=== PATIENT | female | born 1935 | race Caucasian/White ===

== ENCOUNTER → 2016-11-08 | Outpatient (CLI) | payer OTHER ==
[~2016-11-08] VITALS: Ht 165.1 cm; Wt 117.5 kg
[~2016-11-08] MED LIST: AMBIEN 5 MG TABL5 M1 PO; CELEBREX400 MG PO; DESYREL; DESYREL50 MG PO; DETROL LA4 MG PO; DETROL PO; DOLOPHINE HCL5 MG PO; KEFLEX500 MG PO; KLOR-CON 1010 MEQ PO; LEXAPRO 10 MG T10 M1 PO; LEXAPRO 10 MG T10 MG PO; LIDODERM 5%1 PATCH TOP; LUNESTA2 MG PO; LUNESTA3 MG PO; LYRICA 50 MG50 MG PO; METHADONE HCL 110 M1 PO; METHADONE HCL5 MG PO; NUCYNTA50 MG PO; OXYCODONE HCL5 M1 PO; OXYCODONE-ACET1 EAC2 PO; OXYCODONE-ACET1 EACH PO; OXYCONTIN30 MG PO; OXYCONTIN40 MG PO; PREMARIN0.625 MG PO; PROBIOTIC1 EACH PO; ROZEREM; ROZEREM 8 MG TAB8 M1 PO; SIMVASTATIN80 MG PO; SYNTHROID100 MCG PO; TRAZODONE HCL50 MG PO; TRIAMCINOLONE 080 G3 TOP; VITAMIN D400 UNI1 PO
--- NOTE | ~2016-11-08 | HPC ---
[facility] [place] [place] [address] PAIN MANAGEMENT CONSULTATION Name: MITCH SPAIN Room #: REG CHITRA Grace.#: [id number] Admission: 11/08/16 Attend Phys: Wyatt Ramírez MD Discharge: Date of : 35 Report #: [id number] THIS REPORT FOR: //name// CC: Zhanna Markham MD DATE OF SERVICE: 11/08/2016 Followup visit for chronic foot and ankle pain, low back pain and hip pain. The patient returns to pain clinic today and the first thing she reports that she is being sued by her stepson. Her a year ago. Apparently, there are some concerns about the estate. She seems quite stressed today. She scores her pain is a 7/10, sharp and aching. Pain is mostly in her feet and ankles with weightbearing, it is much relieved by medication which is complex and has been titrated over the years. She tolerates her medication well. Denies any significant side effects. She does have a bowel movement about every other day and she uses MiraLax to help with that. She denies any cognitive effects from her medication. She safeguards all her medications. She lives alone. No one is in her house. MEDICATIONS: 1. Methadone 10 mg 4 times daily for a total of 40. 2. Oxycodone 5/325 one tablet twice a day for breakthrough pain. 3. Desyrel and trazodone for depression and anxiety taken at bedtime. 4. Lunesta use p.r.n. for inability to sleep. 5. Detrol LA. 6. Potassium. 7. Celebrex. 8. Vitamin D. PHYSICAL EXAMINATION: GENERAL: She was awake, alert and oriented. No signs of overmedication, sedation, depression or anxiety. She is angry about the last visit. VITAL SIGNS: Her blood pressure 156/70, heart rate is 50. She is 5 foot 5 and 259 pounds with a BMI of 43. She is able to move independently from a sitting to standing position, walks with antalgic features. She has a fall risk. She has significant pain and tenderness around the feet bilaterally where she has the ankle fusion. [address] [address] PAIN MANAGEMENT CONSULTATION Name: MITCH SPAIN Room #: REG [facility] Spencer.#: [id number] Admission: 11/08/16 Attend Phys: Wyatt Ramírez MD Discharge: Date of : 35 Report #: [id number] IMPRESSION: 1. Chronic intractable osteoarthritis involving ankles, bilateral feet, knees, and hips. 2. Chronic back pain. 3. Depression and anxiety. 4. Management of high risk medication. RECOMMENDATIONS: Under terms of our opioid agreement, I have reviewed her medication with important discussion about side effects safeguarding. We will try and continue to taper her medication as able. I did try to do that early in the year, but she complains bitterly of increase in some pain. She seems to do better at the current dose. Followup visit planned in 3 months. <ELECTRONICALLY SIGNED> By: Wyatt Ramírez MD 12/08/16 1130 [id number] Wyatt Ramírez MD /nt
[2016-11-08 12:34] VITALS: BP 156/70
== END | disposition home or self-care (01) ==
LOC: PAIN 07:18
DX: M15.9 Polyosteoarthritis, unspecified (principal); M54.5 Low back pain; G89.29 Other chronic pain; F32.9 Major depressive disorder, single episode, unspecified; F41.9 Anxiety disorder, unspecified; M25.559 Pain in unspecified hip

== ENCOUNTER → 2017-02-07 | Outpatient (CLI) | payer OTHER | LOC: HYPER 07:03 | DX: S91.105A Unspecified open wound of left lesser toe(s) without damage to nail, initial encounter (principal); I83.893 Varicose veins of bilateral lower extremities with other complications; L97.811 Non-pressure chronic ulcer of other part of right lower leg limited to breakdown of skin; L97.821 Non-pressure chronic ulcer of other part of left lower leg limited to breakdown of skin; R60.0 Localized edema; I10 Essential (primary) hypertension; I89.0 Lymphedema, not elsewhere classified; L03.032 Cellulitis of left toe; E66.09 Other obesity due to excess calories; M19.90 Unspecified osteoarthritis, unspecified site; F41.9 Anxiety disorder, unspecified; F32.9 Major depressive disorder, single episode, unspecified; K21.9 Gastro-esophageal reflux disease without esophagitis; E78.5 Hyperlipidemia, unspecified; E03.9 Hypothyroidism, unspecified; W22.8XXA Striking against or struck by other objects, initial encounter; Y93.89 Activity, other specified; Y92.89 Other specified places as the place of occurrence of the external cause; Y99.8 Other external cause status ==

== ENCOUNTER → 2017-02-11 | Outpatient (CLI) | payer OTHER ==
[~2017-02-11] VITALS: Ht 165.1 cm; Wt 117.2 kg
--- NOTE | ~2017-02-11 | HPC ---
[facility] [address] [place] [address] PAIN MANAGEMENT CONSULTATION Name: MITCH SPAIN Room #: REG CHITRA Spencer.#: [id number] Admission: 02/11/17 Attend Phys: Wyatt Ramírez MD Discharge: Date of : 35 Report #: [id number] THIS REPORT FOR: //name// CC: Woody Ramírez DATE OF SERVICE: 02/11/2017 Followup visit for low back pain with radiation into both legs and management of high risk medication. The patient returns to pain clinic today and is having increasing back, leg and foot pain. She also injured her foot striking it on a table. Her biggest complaint is radicular pain that shoots from her back and she complains of pain that involves the calves and feet. She has chronic neuropathy. Current medication dose is quite high. She is very tolerant has few side effects, but I do not think increasing in her opioid is a good idea at this point. I reviewed centrally acting medications provided through our clinic. She is on methadone 20 mg morning and 10 at noon and night, oxycodone 5/325 to supplement for breakthrough pain twice a day as allowed. She also uses Lunesta to help sleep at night and has been on trazodone in the past for depression, anxiety and for sleep. Even with all these central medications, she does not appear to be overly sedating or anxious. She does not appear depressed today. She is pleasant and communicative. We did not talk about social issues which have been so predominant at previous visits. On her current medicines, she is careful about safeguarding them and follows all aspects of our opioid agreement, which is closely mirroring the CDC guidelines. PHYSICAL EXAMINATION: She is morbidly obese, pleasant female. Blood pressure 110/69, heart rate 60, BMI is 43. She is able to move from sitting to standing position, is very obese and movement is difficult in all activities. Straight leg raising bilaterally reproduces pain. She has pain in the hips. Tenderness down the L5-S1 distribution. She has tenderness in the calf. She has a large calf scar from her resection. Sensation is diminished below the knee bilaterally. There is minimal edema. IMPRESSION: 1. Chronic intractable back pain with radiculopathy. 2. Chronic neuropathy. 3. Intractable osteoarthritis, bilateral feet, knees, hips and ankles. 4. Management of high risk medication. 5. History of depression and anxiety. [address] [address] PAIN MANAGEMENT CONSULTATION Name: MITCH SPAIN Room #: REG CLI [facility]#: [id number] Admission: 02/11/17 Attend Phys: Wyatt Ramírez MD Discharge: Date of : 35 Report #: [id number] RECOMMENDATIONS: Trial of epidural steroid injection for radicular symptoms for pain relief. After she has this injection, we will determine whether or not she needs any changes in medicine. I would consider taking her off of methadone and rotating to a different opioid. DESCRIPTION OF PROCEDURE: The patient was taken to fluoroscopic suite, placed prone, skin prepped with ChloraPrep. Skin anesthetized over L4-L5. A 20-gauge Tuohy epidural needle advanced to the right of midline into the epidural space with loss of resistance. No blood or CSF aspirated, 1 mL of Omnipaque injected. Good spread of dye observed in the epidural space followed by 3 mL of 0.5% lidocaine mixed with 80 mg triamcinolone. She tolerated the procedure well and was taken to recovery room for observation and will be followed up for medication management in 3-month intervals. By: [id number] Wyatt Ramírez MD /nt
[2017-02-11 11:04] VITALS: BP 110/69
== END ==
LOC: PAIN 06:52
DX: M54.16 Radiculopathy, lumbar region (principal); F32.9 Major depressive disorder, single episode, unspecified; F41.9 Anxiety disorder, unspecified; M17.0 Bilateral primary osteoarthritis of knee; M16.0 Bilateral primary osteoarthritis of hip; M19.072 Primary osteoarthritis, left ankle and foot; M19.071 Primary osteoarthritis, right ankle and foot

== ENCOUNTER → 2017-02-21 | Outpatient (CLI) | payer OTHER | LOC: HYPER 07:08 | DX: S91.105D Unspecified open wound of left lesser toe(s) without damage to nail, subsequent encounter (principal); I87.2 Venous insufficiency (chronic) (peripheral); R60.0 Localized edema; I10 Essential (primary) hypertension; I89.0 Lymphedema, not elsewhere classified; E66.09 Other obesity due to excess calories; M19.90 Unspecified osteoarthritis, unspecified site; K21.9 Gastro-esophageal reflux disease without esophagitis; E78.5 Hyperlipidemia, unspecified; E03.9 Hypothyroidism, unspecified; F41.9 Anxiety disorder, unspecified; F32.9 Major depressive disorder, single episode, unspecified; Z90.710 Acquired absence of both cervix and uterus; Z96.653 Presence of artificial knee joint, bilateral; Z96.643 Presence of artificial hip joint, bilateral; Z68.39 Body mass index [BMI] 39.0-39.9, adult; X58.XXXD Exposure to other specified factors, subsequent encounter ==

== ENCOUNTER → 2017-03-27 | Outpatient (CLI) | payer OTHER ==
[~2017-03-27] VITALS: Ht 165.1 cm; Wt 115.0 kg
--- NOTE | ~2017-03-27 | HPC ---
[facility] [place] [address] [place] [address] PAIN MANAGEMENT CONSULTATION Name: MITCH SPAIN Room #: REG CHITRA PalmerGrace#: [id number] Admission: 03/27/17 Attend Phys: Rodney Wells MD Discharge: Date of : 35 Report #: [id number] THIS REPORT FOR: //name// CC: Woody Wells The patient was seen on 03/27/[address] Calixto Wells. PRIMARY CARE PHYSICIAN: Woody Brumfield M.D. FOLLOWUP COMPLAINT: Here for medication renewal. FOLLOWUP HISTORY: The patient is an 81-year-old female who has been followed in the pain clinic by Dr. Wyatt Ramírez. She has a significant history of chronic pain. She has been treated with opioid therapy. She finds that these medications continued to be helpful. She has returned today for renewal of her medication. She noted improvement in her pain after the last epidural steroid injection. She was quite pleased with this. She rates her pain as a 7/10 at this juncture. She would like to have her medications renewed. PHYSICAL EXAMINATION: Blood pressure 156/82, pulse 74, respiratory rate 18, room air saturation is 92%. The patient has pain and discomfort in the lower back with pain radiating down into her legs. This is improved after the last epidural steroid injection. Height 5 feet 5 inches, weight 115 kilograms. BMI is 42. The patient walks with use of her walker. She complains of pain and discomfort in the lower portion of her back as well as pain down into her feet, ankles, knees and hips. IMPRESSION: 1. Chronic intractable back pain improved after the last epidural steroid injection. 2. Chronic neuropathy involving the right hand. 3. Intractable osteoarthritis, bilateral feet, knee, hip and ankle pain. 4. Management with high risk medications. 5. History of depression and anxiety. We would like to thank you for letting us participate in her care. We hope she continues to improve. The patient denies any complications from the last epidural steroid injection. By: [id number] Rodney Wells MD /nt
[2017-03-27 10:08] VITALS: BP 156/82
== END | disposition home or self-care (01) ==
LOC: PAIN 06:14
DX: M54.5 Low back pain (principal); G89.29 Other chronic pain; G56.91 Unspecified mononeuropathy of right upper limb; M17.0 Bilateral primary osteoarthritis of knee; M16.0 Bilateral primary osteoarthritis of hip; M19.072 Primary osteoarthritis, left ankle and foot; M19.071 Primary osteoarthritis, right ankle and foot; M25.571 Pain in right ankle and joints of right foot; M25.572 Pain in left ankle and joints of left foot; F32.9 Major depressive disorder, single episode, unspecified; F11.20 Opioid dependence, uncomplicated; F41.9 Anxiety disorder, unspecified

== ENCOUNTER → 2017-06-27 | Outpatient (CLI) | payer OTHER ==
[~2017-06-27] VITALS: Ht 165.1 cm; Wt 121.2 kg
[~2017-06-27] MED LIST changes: +SARNA SENSITIV222 ML TOP
--- NOTE | ~2017-06-27 | HPC ---
[facility] [address] [place] [address] PAIN MANAGEMENT CONSULTATION Name: MITCH SPAIN Room #: REG [place] Grace.#: [id number] Admission: 06/27/17 Attend Phys: Wyatt Ramírez MD Discharge: Date of : 35 Report #: [id number] THIS REPORT FOR: //name// CC: HARRISON Ramírez DATE OF SERVICE: 06/27/2017 Followup visit for chronic back pain. The patient presents today to review her ongoing chronic pain medications. She complains of daily pain of 8/10. She has multiple pain generators including arthritis in her feet, ankles, hips and knees. She says that her right arm also bothers her, particularly the right elbow. Pain is sharp and constant. She has pain with walking and standing and uses a walker. She still lives in her own home. She provides her own self-care, although she does have a caregiver that comes in 3 days a week. She has other comorbidities including insomnia, sleep apnea, hypothyroidism and chronic recurring depression. PHYSICAL EXAMINATION: VITAL SIGNS: Blood pressure is 156/64, heart rate 74, respirations 16. BMI is 44. CHEST: Clear. CARDIAC: Rhythm is regular. EXTREMITIES: She has pain in her left elbow and tenderness is located in other joints including bilateral hips and knees and ankles. She has 3+ edema bilaterally in lower extremities. Straight leg raising is bilaterally positive. She has pain across her lower back. She has bilateral knee and hip replacements and she has a fused ankle on the left. IMPRESSION: 1. Chronic intractable pain with multiple osteoarthritis, pain generators followed by multiple joint replacements. 2. Chronic neuropathy. 3. Spondylitic low back pain with radiculopathy. This has responded well in the past with epidural injection. 4. History of depression and anxiety. She is currently stable. 5. Management of high risk medications under terms of an opioid agreement. RECOMMENDATIONS: 1. We reviewed her use of medications and she will continue to safeguard her medications carefully. She has done very well on methadone 10 mg 3 times a day [facility] [address] [place] [address] PAIN MANAGEMENT CONSULTATION Name: MITCH SPAIN Room #: REG CHITRA Reyes#: [id number] Admission: 06/27/17 Attend Phys: Wyatt Ramírez MD Discharge: Date of : 35 Report #: [id number] as a baseline medication. She actually takes 2 tablets in the morning, 1 at noon and 1 in the evening for a total of 40 mg a day. She uses oxycodone 5/325 1-2 tablets a day for breakthrough medication. She denies any significant side effects with her methadone. She finds it very helpful for her neuropathic pain. She is cognitively intact. She reports that she handles all of own home finances, pays all of her bills, is able to ____ and has no memory issues. 2. I renewed methadone 10 mg #120, 1 tablet in the morning, 2 at noon and 1 in evening and oxycodone 5/325 one tablet b.i.d. for breakthrough. Terms of our opioid agreement reviewed in detail and a followup visit scheduled in 3 months. By: [id number] Wyatt Ramírez MD /nt
[2017-06-27 09:11] VITALS: BP 156/64
== END | disposition home or self-care (01) ==
LOC: PAIN 04-25 10:18
DX: Z76.0 Encounter for issue of repeat prescription (principal); G89.29 Other chronic pain; M19.90 Unspecified osteoarthritis, unspecified site; G62.89 Other specified polyneuropathies; M47.26 Other spondylosis with radiculopathy, lumbar region; G47.33 Obstructive sleep apnea (adult) (pediatric); E03.9 Hypothyroidism, unspecified; F32.89 Other specified depressive episodes; Z79.891 Long term (current) use of opiate analgesic; Z88.0 Allergy status to penicillin; Z88.2 Allergy status to sulfonamides; Z88.8 Allergy status to other drugs, medicaments and biological substances

== ENCOUNTER → 2018-01-02 | Outpatient (CLI) | payer OTHER ==
[~2018-01-02] VITALS: Ht 165.1 cm; Wt 118.0 kg
[~2018-01-02] MED LIST changes: +CELEBREX 200 M200 M1 PO; -CELEBREX400 MG PO; +SYNTHROID100 MC1 PO; +TOLTERODINE TART4 MG PO
--- NOTE | ~2018-01-02 | HPC ---
[facility] [place] [address] [place] [address] PAIN MANAGEMENT CONSULTATION Name: MITCH SPAIN Room #: REG CHITRA MMerari.#: [id number] Admission: 01/02/18 Attend Phys: Wyatt Ramírez MD Discharge: Date of : 35 Report #: [id number] THIS REPORT FOR: //name// CC: Woody Ramírez DATE OF SERVICE: 01/02/2018 Followup visit for chronic low back pain and osteoarthritis. The patient is here today looking as well as I have seen her in some time. She has a caregiver. The caregiver is with her for the first time. She seems quite pleased with her. The caregiver is able to confirm some of the issues of her history that we discussed today. PQRS review shows that she has osteoarthritis and a history of rheumatoid arthritis. Her BMI is 43.3. Although she reports her pain intensity is an 8, she functions at a much higher level than the score would indicate. She is a fall risk due to dizziness and uses a walker, but has been well managed by her caregiver and has not fallen. She is not on a blood thinner nor is she treated for hypertension. In our clinic we provide her with medication for pain under terms of a written opioid agreement. She has been on opioid medications for over 10 years. She tolerates well methadone at a dose of 30 mg per day. We have agreed today that she may even perhaps be able to get by with 25 mg per day. I have therefore written for monthly prescription for 75 of 10 mg tablets. This would be 2-1/2 tablets per day, 25 mg or roughly 110 MME if we use the 4:1 calculation ratio. In addition, she is allowed 2 oxycodone 5/325 tablets to take per day when the pain is very severe. This seems to be helpful. Her caregiver says that she manages the medication fine with a bit of drowsiness. It was with her assistance and agreement that we have decided to continue tapering her medication. She is down from her peak dose and we are hopeful that with the slow titration we can continue to lower her reliance on medication. Just a year and a half ago she was on 40 mg of methadone, so we have made good progress. We reviewed the importance of safeguarding her medication. PHYSICAL EXAMINATION: Is as noted in the PQRS with a clear cardiac rhythm. She has bilateral lower extremity edema and her feet are cool to touch with allodynia. IMPRESSION: 1. Chronic intractable back pain with spondylosis. 2. Osteoarthritis status post bilateral hip replacements [place] [address] PAIN MANAGEMENT CONSULTATION Name: MITCH SPAIN Room #: REG [facility] Spencer.#: [id number] Admission: 01/02/18 Attend Phys: Wyatt Ramírez MD Discharge: Date of : 35 Report #: [id number] ankle. 3. High risk medication management with a written opioid agreement. 4. Morbid obesity. 5. History of depression, much improved with caregiver. Followup visit planned in 3 months. <ELECTRONICALLY SIGNED> By: Wyatt Ramírez MD 02/03/18 1408 [id number] Wyatt Ramírez MD /nt
[2018-01-02 11:19] VITALS: BP 152/72
== END ==
LOC: PAIN 06:36
DX: M47.896 Other spondylosis, lumbar region (principal); M16.0 Bilateral primary osteoarthritis of hip; G89.4 Chronic pain syndrome

== ENCOUNTER → 2018-04-03 | Outpatient (CLI) | payer OTHER ==
[~2018-04-03] VITALS: Ht 165.1 cm; Wt 121.9 kg
[~2018-04-03] MED LIST changes: -SYNTHROID100 MC1 PO
--- NOTE | ~2018-04-03 | HPC ---
[facility] [place] [address] [place] [address] PAIN MANAGEMENT CONSULTATION Name: MITCH SPAIN [id number] Admission: 04/03/18 Attend Phys: Wyatt Ramírez MD Discharge: Date of : 35 Report #: [id number] THIS REPORT FOR: //name// CC: Woody Ramírez DATE OF SERVICE: 04/03/2018 Followup visit for chronic low back pain and osteoarthritis. The patient is here today with her caregiver. She is doing reasonably well. Her pain is modestly controlled to a level of 8/10 with medication. She is on methadone 25 mg a day, oxycodone 5 mg b.i.d. and takes Lunesta and trazodone for sleep at night. She has pain around the clock. Although her pain score is high, she feels comfortable some of the time when she is at rest in bed and sitting. The patient complains of osteoarthritis. She has spondylosis of her back, pain in hips and knees. She also has been diagnosed with rheumatoid arthritis. She has had bilateral hip replacements and has had a fusion of her left ankle, also osteoarthritic. She is morbidly obese. We reviewed the rest of her PQRS review. She is obese with a BMI of 44.7 and is not hypertensive. She is on no blood thinners. She is a fall risk and uses a walker. She has not fallen in the last 3 months and is using precaution. She has an opioid agreement signed in 2016 and is at low risk for addiction. The patient despite her high pain score, is grateful for the pain relief that she does receive from her medication. She does not want to increase her medicine at this time. She has no unmanaged side effects. Constipation has been effectively treated. She safeguards her medication carefully. We reviewed our opioid agreement and morphine milligram equivalents. Although the CDC guidelines suggest that methadone is 4:1 to morphine ratio for chronic patients we see. Ratio should be more in line with 1:1. She is not oversedated or overmedicated. There is no evidence of narcotization. PHYSICAL EXAMINATION: She is pleasant and conversant with no signs of depression or anxiety. Her blood pressure is 162/62, heart rate 64, respirations 20. BMI 47, O2 sat 96. She has great difficulty getting up from a chair even using her arms to help push up. She has tenderness in her left elbow likely due to her walker. No pain in the shoulders. She walks with short, but stable steps. She has pain across the lumbosacral segment. [address] [address] PAIN MANAGEMENT CONSULTATION Name: MITCH SPAIN Chelle Room #: REG [facility] Spencer.#: [id number] Admission: 04/03/18 Attend Phys: Wyatt Ramírez MD Discharge: Date of : 35 Report #: [id number] IMPRESSION: 1. Chronic intractable back pain with spondylosis. 2. Multi-joint osteoarthritis, status post replacement of hips, bilateral and fusion of ankle. 3. Management of high risk medication under terms of an opioid agreement. 4. Morbid obesity. 5. History of depression, now in remission. Medications renewed under terms of our agreement, methadone, oxycodone, Lunesta and trazodone and plan to see her back in pain clinic in 3 months. By: [id number] Wyatt Ramírez MD /nt
[2018-04-03 13:21] VITALS: BP 162/62
== END ==
LOC: PAIN 06:57
DX: G89.29 Other chronic pain (principal); M47.896 Other spondylosis, lumbar region; E66.01 Morbid (severe) obesity due to excess calories; F11.90 Opioid use, unspecified, uncomplicated; Z79.899 Other long term (current) drug therapy

== ENCOUNTER → 2018-06-19 | Outpatient (CLI) | payer OTHER ==
[~2018-06-19] VITALS: Ht 165.1 cm; Wt 122.5 kg
[~2018-06-19] MED LIST changes: +SYNTHROID100 MC1 PO
--- NOTE | ~2018-06-19 | HPC ---
[facility] [address] [place] [address] PAIN MANAGEMENT CONSULTATION Name: MITCH SPAIN Room #: REG [facility] MMerari.#: [id number] Admission: 06/19/18 Attend Phys: Wyatt Ramírez MD Discharge: Date of : 35 Report #: [id number] THIS REPORT FOR: //name// CC: Woody Ramírez DATE OF SERVICE: 06/19/2018 Followup visit for management of chronic low back pain and osteoarthritis. This is a 3-month followup visit for the patient who is here today with her caregiver. This is a fairly routine visit for her. There has been no major change in her health or her condition since she was last here. She describes her pain intensity as an 8, but overall compared to when I first saw her, her overall pain management has dramatically improved. She is well cared for by her car park attendant. She is out of a discomforting relationship with the passing of her . She is able to function at a fairly high level and she shows no cognitive deficits. Her caregiver helps her with many of her activities of daily living, takes her to appointments and is with her for nearly 8-10 hours 7 days a week. Pain medication continues to provide excellent relief of pain and she is grateful for it. She has shown no misuse or abuse. We have checked the [employer] prescription drug monitoring program and there are no unusual entries. I am her only provider other than Dr. Juarez, my partner, who has provided medication for her in my absence. We have checked urine drug screen in the past and there were no abnormalities. Her most recent screen was just 2 months ago. She is at low risk for addiction. PHYSICAL EXAMINATION: She is pleasant, alert and oriented. She is in a wheelchair. Her blood pressure today is 135/77, heart rate 69, respirations 20. She has a BMI of 44.9. She is a fall risk and needs a walker. She can move from sitting to standing position, but only with some difficulty. She has diffuse tenderness to her shoulders and arms, elbows. She has some pain today in her back and across the lumbosacral segment. Both legs are slightly edematous. She has some notable deformities of the toes and she wears open toed sandals. Straight leg raising is positive. IMPRESSION: 1. Chronic low back pain with spondylosis. 2. Multiple joint osteoarthritis status post replacement of the hips and fusion of her ankle. 3. Management of high risk medications. 4. Morbid obesity. [facility] [address] [place] [address] PAIN MANAGEMENT CONSULTATION Name: MITCH SPAIN [id number] Admission: 06/19/18 Attend Phys: Wyatt Ramírez MD Discharge: Date of : 35 Report #: [id number] PLAN: I have renewed her medications under terms of our agreement. We will see her back in the pain clinic in 3 months. By: [id number] MD marjorie Adams
[2018-06-19 10:47] VITALS: BP 135/77
== END ==
LOC: PAIN 07:28
DX: M47.816 Spondylosis without myelopathy or radiculopathy, lumbar region (principal); M16.0 Bilateral primary osteoarthritis of hip; E66.01 Morbid (severe) obesity due to excess calories; G89.29 Other chronic pain; Z79.899 Other long term (current) drug therapy

== ENCOUNTER → 2018-10-02 | Outpatient (CLI) | payer OTHER ==
[~2018-10-02] VITALS: Ht 165.1 cm; Wt 120.2 kg
[~2018-10-02] MED LIST changes: +ESZOPICLONE3 MG PO
--- NOTE | ~2018-10-02 | HPC ---
[facility] [place] [place] [address] PAIN MANAGEMENT CONSULTATION Name: JUDITMITCH Chelle [facility] [id number] Admission: 10/02/18 Attend Phys: Ban Butler Discharge: Date of : 35 Report #: [id number] THIS REPORT FOR: //name// CC: Ban Butler Woody Brumfield DATE OF SERVICE: 10/02/2018 CHIEF COMPLAINT: This is a followup for management of chronic low back pain and osteoarthritis. HISTORY OF PRESENT ILLNESS: This is an 83-year-old female that comes to the pain clinic with her caregiver for followup of her opioid medications. She tells me that she is doing fairly well today except that she has been having some breathing problems and going to see a integrity analyst today. She rates her pain score of 8/10, mostly in her legs. She does tell me that a caregiver's phone fell on her toe this past week and she has a bruise on her left great or big toe that is hurting on top of her normal leg pain, which normally her left leg is worse than her right, especially when she is walking and standing, but the medications are helpful as well as sitting and elevating her legs. She tells me that her change in her decrease of her methadone has gone well and continues with a pain score of 8/10. ALLERGIES: PENICILLIN, SULFA AND MORPHINE. CURRENT LIST OF MEDICATIONS: Lunesta 2 mg at bedtime, trazodone 50 mg 2 tablets at bedtime, oxycodone 5/325 b.i.d., methadone 10 mg in the morning, 5 mg midday and 10 mg at night, Synthroid 100 mcg daily, tolterodine tartrate 4 mg daily, Lexapro 20 mg daily, vitamin D daily, simvastatin 80 mg daily, potassium 10 mEq daily, Celebrex 200 mg daily. PQRS: 1. The patient does have a history of osteoarthritis in her legs and her back. She does have a history of rheumatoid arthritis. 2. Height is 5 feet 5 inches, weight is 265, BMI is 44.1. 3. Vital signs: Blood pressure 150/72, pulse is 60, respirations 20, oxygen sat is 92. 4. Pain score 8/10. 5. Denies dizziness. Uses a walker for standing and walking and has not fallen in the last 3 months. 6. The patient denies blood thinners, denies hypertension. 7. Fall risk assessment tool is low and her functional assessment 53/70. 8. Recreational drug use, she denies, is not a smoker and does not drink alcohol. We checked the prescription monitoring systems for [place] and [place]. The [address] [address] PAIN MANAGEMENT CONSULTATION Name: MITCH SPAIN Room #: REG CHITRA Reyes#: [id number] Admission: 10/02/18 Attend Phys: Ban Butler Discharge: Date of : 35 Report #: [id number] patient is filling appropriately from Dr. Wyatt Ramírez in a timely fashion. She tells me that they safeguard her medicines and her caregivers set up her medicines per the week. PHYSICAL EXAMINATION GENERAL: This is a pleasant, alert, orientated 83-year-old female that appears her stated age. She is alert and orientated x 3. Her affect is appropriate. HEENT: Normocephalic, atraumatic. Extraocular eye muscles are intact. Mucous membranes are moist. Hearing is adequate. NECK: No JVD or adenopathy. MUSCULOSKELETAL: She can move from sitting to standing position with some difficulty. She does use a walker at all times. She has tenderness in her shoulders, arms, legs and feet. Both legs are edematous. There is an ecchymotic area on her left great toe from her recent injury, some slight swelling in her feet as well. Straight leg raising is positive. Lower extremity strength judged to be 4/5 in all major muscle groups. IMPRESSION: 1. Chronic low back pain with spondylosis. 2. 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 3. Management of high risk medications. 4. Morbid obesity. We reviewed the fact that opiate medications are being used to provide analgesia adequate to support activities of daily living, not attempting to achieve a specific pain score on the 0-10 Visual Analog Scale. The current opiate medications are providing sufficient analgesia to allow the patient to participate in activities of daily living. The patient is not exhibiting any aberrant behavior suggestive of drug diversion. The patient is not having any adverse reactions to medications. The patient is not suffering from daytime somnolence or mental acuity changes. The patient is managing opiate-induced constipation with appropriate wuup-aqi-vlmifky agents and dietary considerations. The patient was counseled on concern for caution with operating a motor vehicle while using opiate medications. A physical exam was performed and the patient's functional status was evaluated. All patients with back pain were advised against the bed rest greater than 4 days and were advised to return to normal activities. Pain score assessment was noted and the treatment plan was reviewed with the patient. All current medications, both prescribed and OTC were reviewed and reconciled on the electronic medical record. Tobacco screening was accomplished and smoking cessation was advised when indicated. BMI was noted and diet/exercise modification was recommended for all patients following outside normal parameters. [address] [address] PAIN MANAGEMENT CONSULTATION Name: MITCH SPAIN Room #: REG [facility].#: [id number] Admission: 10/02/18 Attend Phys: Ban Butler Discharge: Date of : 35 Report #: [id number] I reviewed with the patient today their responsibilities to safeguard prescription medications, reviewed their responsibility to utilize medications only as prescribed by the physician. They are to seek and receive pain medications only from 1 physician group ( [facility]). They are to use 1 pharmacy and keep the clinic informed if they change pharmacies. Their responsibilities include making followup visits in a timely fashion and to avoid abrupt discontinuation of medication usage. Their responsibilities further include bringing their medications (bottles from the pharmacy with residual pills) to the visit for possible confirmation of pill counts and the patient understands it is their responsibility to submit to random drug screens to ensure both that the medications prescribed are present, and that no other controlled substances are present. All prescriptions provided today were generated electronically. PLAN: I have reviewed the patient's medications in her terms of our agreement and discussed her plan of care. We will continue on her current medications with no changes made. The patient feels that they have been very helpful and has been doing well with the changes of her medicine of the decrease in her methadone. Scripts given today were, 1. Methadone 10 mg #75, the patient to take 10 in the morning, 5 midday and 10 at night. Scripts for today, 4-week and 8-week were given. 2. Percocet 5/325 #60, for today, 4-week and 8-week were given. 3. Trazodone 50 mg 2 tablets at bedtime 60 with 2 additional refills were given. 4. No script for Lunesta was given. Dr. Brumfield recently decreased her from 3 mg to 2 mg due to daytime sleepiness, so he has been writing that medication and so no scripts needed today. The patient tells me that she is much more alert during the day with this decrease. 5. The patient denies constipation. She tells me that she does control any constipation issues with MiraLax and sweet potatoes, so therefore she has no issues with this. The patient will be seen in 3 months' time for medication refills. The patient is agreeable with this plan of care. The patient was seen today in collaboration with Dr. Britton Wells. <ELECTRONICALLY SIGNED> By: Ban Butler 10/06/18 1453 [id number] Ban Butler /nt
[2018-10-02 10:27] VITALS: BP 150/75
== END ==
LOC: PAIN 09:21
DX: M47.896 Other spondylosis, lumbar region (principal); M19.90 Unspecified osteoarthritis, unspecified site; E66.01 Morbid (severe) obesity due to excess calories; Z79.899 Other long term (current) drug therapy; F11.20 Opioid dependence, uncomplicated

== ENCOUNTER → 2019-03-16 | Outpatient (CLI) | payer OTHER ==
[~2019-03-16] VITALS: Ht 167.6 cm; Wt 111.6 kg
[~2019-03-16] MED LIST changes: +ASPIR 8181 MG PO; +FLONASE 0.05%50 MCG NASAL; +HYDRALAZINE 2525 MG PO; +LISINOPRIL5 MG PO; +OSTEO BI-FLEX1 EAC1 PO; +RANITIDINE HCL75 MG PO; +TOPROL XL25 MG PO; +VITAMIN D1000 UNI1 PO; -VITAMIN D400 UNI1 PO
[2019-03-16 12:36] VITALS: BP 105/58
--- NOTE | 2019-03-16 13:08 | NUR ---
Pain Clinic Assessment: 1. History of Osteoarthritis: YES knees History of Rheumatoid Arthritis: YES 2. Height: 5 ft. 6 in. 167.6 cm. Weight: 246.0 lb. oz. 111.585 kg. Patient's BMI: 39.7 3. Vital Signs: BP: 105/58 Pulse: 53 Resp: 16 Temp: 02 Sat: 91 ECG Mon: 4. Pain Intensity: 8 1/2 5. Fall Risk: Dizziness: Y Needs help standing or walking: Y Fallen in the last 3 months: Y Fall risk comments: USES WALKER 6. Patient on Blood Thinner: None 7. History of Hypertension: N 8. Opioid Therapy greater than 6 weeks: Y Opiate Contract Signed: 07/12/16 9. Risk Assessment Tool Provided: LOW RISK 10/30 10. Functional Assessment Tool: 53 11. Recreational Drug Use: Never Drug Type: Tobacco Use: Never Smoker Tobacco Type: Amount or Packs/day: How Many Years: Alcohol Use: No Frequency: Quant:
--- NOTE | 2019-03-17 08:42 | HPC ---
[facility] [address] [place] [address] PAIN MANAGEMENT CONSULTATION Name: JUDITMITCH Chelle [facility] [id number] Admission: 03/16/19 ������������������ Attend Phys: Ban Butler Discharge: ������������������ Date of : 35 Report #: [id number] THIS REPORT FOR: //name// CC: Ban Butler Woody Brumfield DATE OF SERVICE: 03/16/2019 CHIEF COMPLAINT: Chronic low back pain and osteoarthritis. HISTORY OF PRESENT ILLNESS: This is an 83-year-old female who returns to the pain clinic today for refill of her opioid medications. She is here present with her caregiver. She tells me that she fell in her bathroom on Saturday and did hit her head. She went to the Emergency Room at [facility] and she received 14 stitches in her head. They did a CAT scan at that time and told her that there was no damage or bleed. The patient though today is finding problems word searching, tells me she just does not feel quite right. She does have a slight headache today that she does not feel like that she is her normal self today. Her caregiver is in agreement with this. They are seeing their primary care doctor after this appointment. The patient has chronic back pain, but also pain everywhere. She tells me it is an 8.5 today, stating that this is a sharp, achy pain. Her pain is mostly in her legs and her right arm. Her medications, she finds helpful. She does ramble today about not getting her medications in the middle of the night, but she does not take them throughout the daytime hours. She only takes her methadone throughout the day, not her oxycodone. She is in her wheelchair today, though she is able to stand for her weight. ALLERGIES: PENICILLIN, SULFA AND MORPHINE. CURRENT LIST OF MEDICATIONS: Aspirin 81 mg daily, Osteo Bi-Flex capsules b.i.d., lisinopril 5 mg daily, Flonase daily, hydralazine 50 mg t.i.d., Toprol-XL 25 mg daily, Zantac 75 mg daily, Lunesta 2 mg at bedtime, trazodone 100 mg at bedtime, oxycodone 5/325 two tablets p.r.n. twice daily, methadone 10 mg in the morning, 5 midday and 10 mg at bedtime, Synthroid 100 mcg daily, tolterodine 4 mg daily, Lexapro 20 mg daily, vitamin D 1000 units b.i.d. PQRS: 1. She does have osteoarthritis in her legs and her back and she denies any rheumatoid arthritis. 2. Height is 5 feet 6 inches, weight is 246, BMI is 39. 3. Vital Signs: Blood pressure 105/58, pulse is 53, respirations 16, oxygen sat is 91. 4. Pain score is 8.5. 5. Fall risk, she complains of some dizziness, does need help with walking. [address] [address] PAIN MANAGEMENT CONSULTATION Name: MITCH SPAIN Room #: REG CHITRA Reyes#: [id number] Admission: 03/16/19 ������������������ Attend Phys: Ban Butler Discharge: ������������������ Date of : 35 Report #: [id number] She uses a walker and is in a wheelchair today and she has fallen in the last 3 months. 6. The patient is not on any blood thinners. She does take medicines for hypertension. 7. Opiate therapy is greater than 6 weeks; therefore, her opioid signed contract is on the chart. 8. Her risk assessment tool is low. Her functional assessment is 53/70. 9. Recreational drug use, she denies. She is not a smoker and does not drink alcohol. We did check the prescription monitoring system. The patient is filling appropriately for her medications, though her last fills have been from Dr. Marks at the care facility where she resides. PHYSICAL EXAMINATION: GENERAL: This is a pleasant, alert and oriented 83-year-old appears her stated age. Her affect is appropriate though word searching at times. HEENT: Normocephalic. Extraocular eye muscles are intact. Mucous membranes are moist. Hearing is adequate. The patient does have sean across her top of her scalp. Her hair is bloody and dried from her recent fall. NEUROLOGIC: Cranial nerves are intact. Her gross motor assessment is intact. She has strong legal instructor bilaterally. NECK: Without JVD or adenopathy. MUSCULOSKELETAL: The patient can move from sitting to standing position with much difficulty. She uses a walker at all times and is in a wheelchair today. Complains of tenderness in her shoulders, arms, legs and feet. Bilateral legs are edematous. IMPRESSION: 1. Chronic low back pain with spondylosis. 2. 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 3. Management of high risk medication. 4. Morbid obesity. 5. Recent fall with sean intact on the top of her skull. We reviewed the fact that opiate medications are being used to provide analgesia adequate to support activities of daily living, not attempting to achieve a specific pain score on the 0-10 Visual Analog Scale. The current opiate medications are providing sufficient analgesia to allow the patient to participate in activities of daily living. The patient is not exhibiting any aberrant behavior suggestive of drug diversion. The patient is not having any adverse reactions to medications. The patient is not suffering from daytime somnolence or mental acuity changes. The patient is managing opiate-induced constipation with appropriate ukpg-afk-kzwnftn agents and dietary considerations. The patient was counseled on concern for caution with operating [facility] [address] [place] [address] PAIN MANAGEMENT CONSULTATION Name: JUDIT,MITCH Chelle Room #: [facility] [id number] Admission: 03/16/19 ������������������ Attend Phys: Ban Butler Discharge: ������������������ Date of : 35 Report #: [id number] a motor vehicle while using opiate medications. A physical exam was performed and the patient's functional status was evaluated. All patients with back pain were advised against the bed rest greater than 4 days and were advised to return to normal activities. Pain score assessment was noted and the treatment plan was reviewed with the patient. All current medications, both prescribed and OTC were reviewed and reconciled on the electronic medical record. Tobacco screening was accomplished and smoking cessation was advised when indicated. BMI was noted and diet/exercise modification was recommended for all patients following outside normal parameters. I reviewed with the patient today their responsibilities to safeguard prescription medications, reviewed their responsibility to utilize medications only as prescribed by the physician. They are to seek and receive pain medications only from 1 physician group ([facility]). They are to use 1 pharmacy and keep the clinic informed if they change pharmacies. Their responsibilities include making followup visits in a timely fashion and to avoid abrupt discontinuation of medication usage. Their responsibilities further include bringing their medications (bottles from the pharmacy with residual pills) to the visit for possible confirmation of pill counts and the patient understands it is their responsibility to submit to random drug screens to ensure both that the medications prescribed are present, and that no other controlled substances are present. All prescriptions provided today were generated electronically. PLAN: 1. We discussed treatment options with the patient today. The patient is searching for words at times and finding it difficult to complete her thoughts. She verbalizes that she does not feel quite correct normal. The patient was seen by Dr. Wyatt Ramírez who also did complete an assessment and agreed that her neuro is intact, but does realize that she is not quite cognitively alert as she normally is. We did discuss that sometimes after head injuries, you do have some concussion-like symptoms that can cause you to look for words. We encouraged her to see her primary care doctor, which she is seeing in the next few hours today, but we did tell the caregiver that if she continues to develop more symptoms that she needs to go back to the Emergency Room and be reevaluated. 2. Scripts given today for her methadone 10 mg, she takes 10 in the morning, 5 midday and 10 at night and oxycodone #60 of , the patient takes them usually in the evenings. We did write a note to [address] not to wake the patient for her pain medicines at nighttime that if the patient does awake and would request them that she may have her pain pills in the middle of the night. Refills for those for today, 4 and 8-week, trazodone 50 mg #60 with 2 additional refills was also given. 3. The patient is to follow up with her pain clinic in 3 months' time. [address] [address] PAIN MANAGEMENT CONSULTATION Name: MITCH SPAIN Room #: REG CHITRA Reyes#: [id number] Admission: 03/16/19 ������������������ Attend Phys: Ban Butler Discharge: ������������������ Date of : 35 Report #: [id number] Wyatt Ramírez did see the patient as well as collaborating care. The patient discharged here and will be going to Dr. Brumfield's office for further evaluation and appointment there today. ��������������������������������������������� <ELECTRONICALLY SIGNED> ���������������������������������������� By: Ban Butler ��������������������������������������������� 03/17/19 0842 [id number] 1958 Ban Butler /nt
== END ==
LOC: PAIN 06:47
DX: G89.29 Other chronic pain (principal); M47.816 Spondylosis without myelopathy or radiculopathy, lumbar region; E66.8 Other obesity; Z88.2 Allergy status to sulfonamides; Z88.5 Allergy status to narcotic agent; Z88.0 Allergy status to penicillin; Z79.899 Other long term (current) drug therapy; Z79.891 Long term (current) use of opiate analgesic; Z96.643 Presence of artificial hip joint, bilateral; Z68.39 Body mass index [BMI] 39.0-39.9, adult

== ENCOUNTER → 2019-07-27 | Outpatient (CLI) | payer OTHER ==
[~2019-07-27] VITALS: Ht 165.1 cm; Wt 112.9 kg
[~2019-07-27] MED LIST changes: +ONDANSETRON HCL4 M2 PO
[2019-07-27 09:58] VITALS: BP 151/73
--- NOTE | 2019-07-27 10:34 | NUR ---
Pain Clinic Assessment: 1. History of Osteoarthritis: YES knees shoulders back History of Rheumatoid Arthritis: YES 2. Height: 5 ft. 5 in. 165.1 cm. Weight: 249.0 lb. oz. 112.946 kg. Patient's BMI: 41.4 3. Vital Signs: BP: 151/73 Pulse: 60 Resp: 16 Temp: 02 Sat: 96 ECG Mon: 4. Pain Intensity: 9 5. Fall Risk: Dizziness: N Needs help standing or walking: Y Fallen in the last 3 months: N Fall risk comments: USES WALKER 6. Patient on Blood Thinner: None 7. History of Hypertension: N 8. Opioid Therapy greater than 6 weeks: Y Opiate Contract Signed: 07/12/16 9. Risk Assessment Tool Provided: LOW RISK 10/30 10. Functional Assessment Tool: 53 11. Recreational Drug Use: Never Drug Type: Tobacco Use: Never Smoker Tobacco Type: Amount or Packs/day: How Many Years: Alcohol Use: No Frequency: Quant:
--- NOTE | 2019-08-06 16:52 | HPC ---
[facility] [address] [address] [place] [address] PAIN MANAGEMENT CONSULTATION Name: MITCH SPAIN Room #: REG CHITRA [facility].#: [id number] Admission: 07/27/19 Attend Phys: Wyatt Ramírez MD Discharge: Date of : 35 Report #: [id number] THIS REPORT FOR: //name// CC: Lindsay Ramírez DATE OF SERVICE: 07/27/2019 Followup visit for medication management of intractable chronic pain. The patient is seen today in followup, last seen in our clinic on 03/16/2019. She is living at [facility]. She still considers Dr. Brumfield her primary care physician, but she also sees Dr. Lindsay Marks, who I believe is a physician on staff at [facility]. For each patient, we pull the prescription drug monitoring program information. Today's information dates back to February. At that time, Dr. Marks was providing for her methadone 10 mg in the morning, 5 mg in the evening. She was also using oxycodone 5/325 once a day for breakthrough pain. I note that in the prescription drug monitoring information from [facility] as well as in [facility], the methadone has been discontinued. Her last prescription for methadone was provided on 05/20/2019. She reports that she has had significant increases in pain. Her primary pain generator now is in her right arm. It radiates from her neck all the way through her shoulder, down into the forearm and hand. She describes weakness in the arm as well. She is having significant difficulty sleeping at night, and is holding off on her medication so that she can take it at bedtime. She is also on gabapentin 100 mg. She is not sure when the pain worsened, but it may be in conjunction with the discontinuation of her methadone, which she had been on for a number of years through our clinic. Chart reflects that she was taking methadone in a stable fashion as far back as 2012. If she has gone off it, she has surely gone through withdrawal by this point. I will not say she is doing markedly worse, but clearly her pain has increased. She complains in addition of chronic low back pain, which is chronic and related to spondylosis. She has diffuse osteoarthritis involving her legs as well, both hips and knees. PQRS review describes osteoarthritis of the knees, shoulders and back; a BMI of 41.4, pain intensity of 9/10, risk of fall. She needs help walking and standing and uses a walker, which may be aggravating her right arm. She denies use of blood thinners and does not take medication for hypertension. She is on an opioid agreement signed in our clinic as far back as 2012 and signed for a [facility] [address] [place] [address] PAIN MANAGEMENT CONSULTATION Name: JUDITMITCH SPICER Chelle Room #: REG CL[facility]by Reyes#: [id number] Admission: 07/27/19 Attend Phys: Wyatt Ramírez MD Discharge: Date of : 35 Report #: [id number] second time in 2016. She denies use of tobacco or alcohol. Her risk assessment tool shows her at low risk for addiction with a score of 1. PHYSICAL EXAMINATION: GENERAL: Today, she is pleasant, alert and oriented without signs of anxiety, depression or overmedication. She does appear to be in some pain. HEENT: Normal. NECK: Supple with good range of motion. She has some exacerbation of pain with lateral tilt to the left. Rotational movements also exacerbate pain in the neck. Tenderness in the neck is noted. MUSCULOSKELETAL: Examination of the shoulder reveals tenderness also in the shoulder joint. She has pain with internal and external rotation, although range of motion is not markedly diminished. She has probably 25% reduction in external rotation, 25% reduction in internal. She has some ability to actively abduct her arm without too much discomfort. Senior C Software Engineer strength is 5+ and equal and symmetrical. She has 3+/5 weakness of the triceps and biceps on the right in comparison to the left. Sensation is intact to light touch. Deep tendon reflexes in the upper extremities are 2+ biceps, triceps and brachioradialis bilaterally and symmetrical. She has absent lower extremity reflexes bilaterally. IMPRESSION: I believe her right arm pain may be cervical radiculopathy. An MRI would be helpful if we plan to go forward with a cervical epidural injection. The lack of methadone on her prescription drug monitoring in May would suggest that over the last month, she has not been given methadone and has now gone through withdrawal. This may attribute to her increase in pain. I did not write prescriptions for her given the fact that my prescriptions have not been filled, and all prescriptions for pain medications have been written by Dr. Marks dating back as far as January. PLAN: To review MRI and bring her back for cervical epidural injection to help with cervical radiculopathy on the right. Appointment scheduled. <ELECTRONICALLY SIGNED> By: Wyatt Ramírez MD 08/06/19 1652 [id number] Wyatt Ramírez MD /nt
== END ==
LOC: PAIN 06:48
DX: G89.4 Chronic pain syndrome (principal); M79.601 Pain in right arm

== ENCOUNTER → 2019-08-03 | Outpatient (CLI) | payer OTHER | LOC: MRI 14:10 | DX: M47.22 Other spondylosis with radiculopathy, cervical region (principal); M25.78 Osteophyte, vertebrae; M48.02 Spinal stenosis, cervical region ==

== ENCOUNTER → 2019-11-23 | Outpatient (CLI) | payer OTHER ==
[~2019-11-23] VITALS: Ht 165.1 cm; Wt 114.8 kg
[~2019-11-23] MED LIST changes: +ELIQUIS5 MG PO
[2019-11-23 12:48] VITALS: BP 141/76
--- NOTE | 2019-11-23 13:20 | NUR ---
Pain Clinic Assessment: 1. History of Osteoarthritis: NECK KNEES SHOULDERS BACK History of Rheumatoid Arthritis: YES 2. Height: 5 ft. 5 in. 165.1 cm. Weight: 253.0 lb. oz. 114.760 kg. Patient's BMI: 42.1 3. Vital Signs: BP: 141/76 Pulse: 71 Resp: 14 Temp: 02 Sat: 93 ECG Mon: 4. Pain Intensity: 8 5. Fall Risk: Dizziness: N Needs help standing or walking: Y Fallen in the last 3 months: N Fall risk comments: USES WALKER 6. Patient on Blood Thinner: ELIQUIS 7. History of Hypertension: N 8. Opioid Therapy greater than 6 weeks: Y Opiate Contract Signed: 07/12/16 9. Risk Assessment Tool Provided: LOW RISK 10/30 10. Functional Assessment Tool: 53 11. Recreational Drug Use: Never Drug Type: Tobacco Use: Never Smoker Tobacco Type: Amount or Packs/day: How Many Years: Alcohol Use: No Frequency: Quant:
--- NOTE | 2019-11-25 08:42 | HPC ---
[facility] [address] [place] [address] PAIN MANAGEMENT CONSULTATION Name: MITCH SPAIN Room #: REG [facility] [place].#: [id number] Admission: 11/23/19 Attend Phys: Ban Butler Discharge: Date of : 35 Report #: [id number] THIS REPORT FOR: //name// CC: Ban Ramírez MD DATE OF SERVICE: 11/23/2019 CHIEF COMPLAINT: Cervical pain with radiculopathy into her right arm. HISTORY OF PRESENT ILLNESS: The patient returns today to discuss medications with her caregiver. Per the caregivers report, the patient recently been in [facility] for a fracture in her left ischium that has resolved as well as bilateral leg, blood clots. She is currently on Eliquis for this. She does continue to complain of pain in her neck and right arm, rating it an 8/10, is sharp, stabbing pain. The patient reports that she did get some benefit from her cervical epidural steroid injection. This was short lived relief due to health issues. Then she was hospitalized sometime in September for a lengthy stay with her fracture in her blood clots as well as congestive heart failure. Caregiver reports they have changed some of her medications. The patient is filling somewhat better in regards to her breathing. She continues to have excessive edema in her lower extremities. The caregiver would like to talk about the patient's pain schedule that Dr. Marks writes for her, which is methadone 3 times a day as well as oxycodone through the nighttime hours. The patient feels that her current regimen of pills at 7:00 in the evening, 11:00 p.m., 3:00 in the morning and 7:00 in the a.m. are beneficial, though the caregiver does report they wake her from a deep sleep and she does not find this beneficial or if she misses a dose due to sleeping, the staff is not willing to give her a dose since it is pastime. She is wondering if we can write recommendations to Dr. Marks. ALLERGIES: PENICILLIN, SULFA and MORPHINE. CURRENT LIST OF MEDICATIONS: Aspirin, Eliquis 5 mg b.i.d., escitalopram, Pepcid, gabapentin 100 mg 3 times a day, isosorbide, Lasix 80 mg, levothyroxine, Lunesta, methadone 10 mg in the morning, 5 mg midday and 10 mg at night, metolazone, MiraLax, Osteo Bi-Flex, Percocet 5/325, potassium, simvastatin, tolterodine and trazodone. PQRS: 1. 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 2. Height is 5 feet 5 inches, weight is 253, [place] 42[place] [address] PAIN MANAGEMENT CONSULTATION Name: MITCH SPAIN Room #: REG [facility].#: [id number] Admission: 11/23/19 Attend Phys: Ban Butler Discharge: Date of : 35 Report #: [id number] 3. Vital signs, 141/76, pulse is 71, respirations 14, oxygen sat is 93 on 3 liters nasal cannula. 4. Pain score is 8/10. 5. Denies dizziness, does need help walking. She is in a wheelchair today and uses a walker. Has fallen in the last 3 months. 6. The patient is on Eliquis. The patient does not take medicines for hypertension. 7. Risk assessment tool is low. Functional assessment is 53/70. 8. Opioid therapy is greater than 6 weeks. 9. Recreational drug use, she denies. She is not a smoker and does not drink alcohol. According to the prescription monitoring system, Dr. Marks has been writing her opioids from the long-term care facility at [facility], where she lives. PHYSICAL EXAMINATION: GENERAL: This is alert and orientated 84-year-old female, stating her pain score of 8/10 today. HEENT: Normocephalic, atraumatic. Extraocular eye muscles are intact. Slightly exophthalmus of bilateral eyes. MUSCULOSKELETAL: She has pain with movement in flexion, extension and rotation, weakness in her right arm, pain with abduction. This follows the C6-C7 dermatomal distribution. MUSCULOSKELETAL: She has 3+ edema in her lower extremities. She has difficulty with ambulation, uses a walker and assistance. Her lower extremities strength are diminished. ASSESSMENT: 1. Cervical radiculopathy. 2. Recent left ischium fracture. 3. Congestive heart failure. 4. Recent deep vein thrombosis bilaterally. 5. Morbid obesity. 6. Chronic obstructive pulmonary disease, requiring supplemental oxygen. 7. Chronic pain. 8. Opioid medications. 9. Osteoarthritis affecting multiple joints. 10. Chronic low back pain with spondylosis. PLAN: 1. We discussed treatment options with the patient today. Caregiver is requesting repeat of her cervical epidural steroid injection since it was not beneficial for a significant amount of time. I explained to the patient that she will need to be off her Eliquis medication. 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 [address] [address] PAIN MANAGEMENT CONSULTATION Name: MITCH SPAIN [id number] Admission: 11/23/19 Attend Phys: Ban Butler Discharge: Date of : 35 Report #: [id number] 2. We discussed pain management regimen. Dr. Marks does manage her medications. The patient is taking methadone 10 in the morning, 5 mg midday and 10 mg at night. She continues to take oxycodone 5/325 as needed for pain. The problem seems to be in the middle of the night. The patient is awoken from deep sleep, to be given pain medicine. I did speak with Dr. Wyatt Ramírez as to the plan I should encourage them on to. We did write recommendations to Dr. Marks for patient to take as needed from 7:00 p.m. to 7:00 a.m. every 4 hours, not to wake the patient, but if the patient does awaken in pain that they may repeat or may offer her a pain pill at that time if needed. No prescriptions were written today, just recommendations for self-care. 3. The patient and caregiver instructed to call for an appointment when her music video producer allows her to be off her Eliquis for a cervical epidural steroid injection from Dr. Wyatt Ramírez. 4. Care given under the collaboration with Dr. Wyatt Ramírez who I discussed this case with today. <ELECTRONICALLY SIGNED> By: Ban Butler 11/25/19 [id number] Ban amador
== END ==
LOC: PAIN 06:45
DX: M47.26 Other spondylosis with radiculopathy, lumbar region (principal); I50.9 Heart failure, unspecified; E66.01 Morbid (severe) obesity due to excess calories; J44.9 Chronic obstructive pulmonary disease, unspecified; G89.29 Other chronic pain; M19.90 Unspecified osteoarthritis, unspecified site; Z86.718 Personal history of other venous thrombosis and embolism; Z79.82 Long term (current) use of aspirin; Z79.891 Long term (current) use of opiate analgesic; Z79.899 Other long term (current) drug therapy; Z88.2 Allergy status to sulfonamides; Z88.5 Allergy status to narcotic agent; Z88.0 Allergy status to penicillin